=== PATIENT | female | born 1945 | race African-American/Black ===

== ENCOUNTER → 2017-05-31 | Outpatient (CLI) | payer MEDICARE, OTHER ==
--- NOTE | ~2017-05-31 | MY29 ---
[facility] A Service of [facility] RADIOLOGY TEXT RESULTS PATIENT: FAWN YIN LOCATION: [facility] : 49 UNIT #: [id number] AGE: [address]: Elda Moon MD SEX: F ORDER DR: [id number] [facility] [address] [place], [place] [address] [id number] O MR#: [id number] Acc #: [id number] NAME: FAWN YIN : 1945 SEX: F STUDY DATE/TIME: 05/31/2017 10:52 UNIT: [facility] ROOM: STUDY DESCRIPTION: MY DAWN SCREENING W/ CAD BILAT Attending Physician: Elda Moon M.D. Referring Physician: Elda Moon M.D. Ordering Physician: Elda Moon M.D. Primary Care Physician: Elda Moon M.D. MEDICAL IMAGING REPORT This report is preliminary unless electronic signature is present EXAM Digital screening mammogram with CAD INDICATIONS Routine screening. TECHNIQUE Bilateral CC and MLO views obtained on a digital mammography unit. FDA-approved CAD device utilized. COMPARISON 05/28/2016. FINDINGS Scattered fibroglandular density. No dominant mass or suspicious calcification. IMPRESSION Negative screening mammogram, screen interval 1 year is suggested. BIRADS: 1 Negative. Patients over the age of 40 are entered into a reminder system with target due date for the next mammogram. A result letter will also be sent to the patient. Dictated by... Bennett Stuart M.D. THIS IS AN ELECTRONICALLY VERIFIED REPORT Bennett Stuart M.D. at 06/01/2017 7:12 AM [facility] A Service [facility] RADIOLOGY TEXT RESULTS PATIENT: FAWN YIN LOCATION: [facility] : 49 UNIT #: [id number] AGE: [address]: Elda Moon MD SEX: F ORDER DR: BRIANA/tammy PATEL: 05/31/2017 14:01 TD: 05/31/2017 19:23 JOB #: [id number] MEDICAL IMAGING REPORT Page 1 of 1 COPY
== END | disposition home or self-care (01) ==
LOC: CWCC 10:25
DX: Z12.31 Encounter for screening mammogram for malignant neoplasm of breast (principal)
CPT/HCPCS: G0202